=== PATIENT | male | born 1960 | race African-American/Black ===

== ENCOUNTER 2016-08-08 23:48 | Emergency (ER) | payer OTHER ==
[~2016-08-08] VITALS: Ht 180.3 cm; Wt 120.2 kg
--- NOTE | ~2016-08-08 | EKG ---
[address] [address] ELECTROCARDIOGRAM REPORT Name: BURTON ROOT Room #: DEP Sandy#: [id number] Admission: 08/08/16 Attend Phys: Discharge: 08/09/16 Date of : 60 Report #: [id number] THIS REPORT FOR: //name// [facility] ED Test Date: 2016-08-08 Test Time: 23:55:44 Pat Name: BURTON ROOT Department: Room: Gender: [employer] Operator: CHRISTIANA : 1960 Requested By: Cinthia Yao Order Number: [id number] MD: Henri Urbano Measurements Intervals [place] Rate: 67 P: 30 MS: 133 QRS: -25 QRSD: 90 T: 1 QT: 383 QTc: 405 Interpretive Statements Sinus rhythm Left ventricular hypertrophy No previous ECG available for comparison Electronically Signed On 08-09-2016 20:13:22 CDT by Henri Urbano [email or web address] <ELECTRONICALLY SIGNED> By: Henri Urbano MD 08/09/162012 [id number] Henri Urbano MD /KAREN
[2016-08-08] MEDS ORDERED: HYDROCODONE-AP1 EAC6 PO (23:54)
[2016-08-09 00:19] LABS: ABSOLUTE NEUTROPHILS 4.7 thou/uL (1.4-8.2); BASOPHILS 1.4 % (0.0-2.0); EOSINOPHILS 3.4 % (0.0-3.0); HEMATOCRIT 43.7 % (42.0-52.0); HEMOGLOBIN 14.7 gm/dL (14.0-18.0); LYMPHOCYTES 41.7 % (24.0-44.0); MCHC 33.7 g/dL (28.0-37.0); MCV 92.2 fL (80.0-100.0); MONOCYTES 7.4 % (1.0-8.0); PLATELET COUNT 234 thou/uL (150-400); POLYS 46.1 % (36.0-66.0); RBC 4.74 mil/uL (4.50-6.00); RDW 14.2 % (10.5-14.5); WBC 10.2 thou/uL (4.0-11.0)
[2016-08-09 00:26] LABS: MANUAL DIFF NO
[2016-08-09 00:32] LABS: ANION GAP 7 mmol/L (7-16); BUN 12 mg/dL (7-18); CALCIUM 8.9 mg/dL (8.5-10.1); CHLORIDE 103 mmol/L (98-107); CO2 28 mmol/L (21-32); CREATININE 1.2 mg/dL (0.6-1.3); GLUCOSE 121 mg/dL (70-99); POTASSIUM 4.2 mmol/L (3.5-5.1); SODIUM 138 mmol/L (136-145); TROPONIN-I < 0.04 ng/mL (<0.04-0.07)
[2016-08-09] MEDS ORDERED: NAPROSYN500 MG PO (03:18)
[2016-08-09 03:26] VITALS: BP 134/87
== END 2016-08-09 03:27 | disposition home or self-care (01) ==
LOC: ER 23:48
PROVIDERS: Emergency Medicine
DX: R07.9 Chest pain, unspecified (principal); R06.00 Dyspnea, unspecified; G47.30 Sleep apnea, unspecified; I48.91 Unspecified atrial fibrillation; F17.210 Nicotine dependence, cigarettes, uncomplicated